=== PATIENT | female | born 1940 | race Caucasian/White ===

== ENCOUNTER 2017-01-07 05:01 | Emergency (ER) | payer MEDICARE ==
[~2017-01-07] VITALS: Ht 144.7 cm; Wt 61.2 kg
[~2017-01-07 05:01] MED LIST: ALLEGRA60 M2 PO; ASPIRIN325 M2 PO; CARDIZEM30 MG PO; CELEXA10 MG PO; CIPRO500 MG PO; CLARITIN10 M1 PO; FLAGYL500 MG PO; FLONASE ALLERG9.9 ML NS; HYDROCODONE BIT1 T11 PO; LISINOPRIL5 MG PO; METFORMIN500 MG PO; SUNMARK OMEPRAZ20 M1 PO; ZOFRAN ODT4 MG SL
[2017-01-07] MEDS ORDERED: KENALOG 0.1%80 GM T (05:09)
[2017-01-07] MEDS ORDERED: MONTELUKAST SOD10 MG PO (05:10)
[2017-01-07] MEDS ORDERED: PANTOPRAZOLE SO40 MG PO (05:11)
[2017-01-07] MEDS ORDERED: LISINOPRIL-HYDR1 TA1 PO (05:12)
[2017-01-07] MEDS ORDERED: IBUPROFEN600 MG PO (05:12)
[2017-01-07] MEDS ORDERED: ZOCOR20 MG PO (05:13)
[2017-01-07] MEDS ORDERED: CLOBETASOL PROP15 GM TP (05:13)
== END 2017-01-07 11:17 | disposition home or self-care (01) ==
LOC: ED 05:01
DX: S01.01XA Laceration without foreign body of scalp, initial encounter (principal); Z79.899 Other long term (current) drug therapy; W06.XXXA Fall from bed, initial encounter; Y93.89 Activity, other specified; Y92.89 Other specified places as the place of occurrence of the external cause; Y99.8 Other external cause status

== ENCOUNTER 2017-05-09 18:49 | Emergency (ER) | payer MEDICARE ==
[~2017-05-09] VITALS: Ht 147.3 cm; Wt 61.2 kg
[~2017-05-09 18:49] MED LIST changes: +CLOBETASOL PROP15 GM TP; +IBUPROFEN600 MG PO; +KENALOG 0.1%80 GM T; +LISINOPRIL-HYDR1 TA1 PO; +MONTELUKAST SOD10 MG PO; +PANTOPRAZOLE SO40 MG PO; +ZOCOR20 MG PO
[2017-05-09] MEDS ORDERED: AMARYL1 M1 PO (19:03)
== END 2017-05-09 22:29 | disposition home or self-care (01) ==
LOC: ED 18:49
DX: S90.32XA Contusion of left foot, initial encounter (principal); Z90.49 Acquired absence of other specified parts of digestive tract; Z90.710 Acquired absence of both cervix and uterus; Z98.890 Other specified postprocedural states; Z79.899 Other long term (current) drug therapy; W01.0XXA Fall on same level from slipping, tripping and stumbling without subsequent striking against object, initial encounter; Y93.89 Activity, other specified; Y92.098 Other place in other non-institutional residence as the place of occurrence of the external cause; Y99.9 Unspecified external cause status

== ENCOUNTER 2018-04-18 13:18 | Emergency (ER) | payer MEDICARE ==
[~2018-04-18] VITALS: Wt 59.9 kg
--- NOTE | ~2018-04-18 | EKG ---
[place], [place] ELECTROCARDIOGRAM REPORT NAME: LISETTE REID I UNIT #: [id number] ROOM: DOCTOR: EPIPHANY DRAFT REPORT BIRTHDATE: [birth year] [facility] Test Date: 2018-04-18 Test Time: 13:52:21 Pat Name: LISETTE REID Department: Room: Gender: F [employer]: : 1940 Requested By: SANDY REYES Order Number: [id number] Reading MD: Benton Pabon MD Measurements Intervals [place] Rate: 72 P: 39 ID: [id number] QRS: 2 QRSD: 60 T: -1 QT: 435 QTc: 477 Interpretive Statements Sinus rhythm LVH by voltage Electronically Signed On 04-18-2018 20:39:38 PDT by Benton Pabon MD CM:EKGRPT:ELECTROCARDIOGRAM REPORT [id number] SANDY REYES EPIPHANY DRAFT REPORT SANDY REYES
[~2018-04-18 13:18] MED LIST changes: +AMARYL1 M1 PO
[2018-04-18 14:17] LABS: HEMOGLOBIN 12.7 g/dl (12.0-16.0); MEAN CELL VOLUME 88.4 fl (81.0-99.0); MEAN CORPUSCULAR HGB 28.8 pg (27.0-31.0); MEAN CORPUSCULAR HGB CONC 32.6 g/dl (33.0-37.0); MEAN PLATELET VOLUME 10.6 fl (9.6-12.3); PLATELET COUNT AUTOMATED 345 10*3/uL (130-400); RED BLOOD COUNT 4.41 10*6/uL (4.10-5.10); RED CELL DISTRI WIDTH 14.4 % (0-14.5); WHITE BLOOD COUNT 14.7 10*3/uL (4.8-10.8)
[2018-04-18 14:35] LABS: ALBUMIN 3.8 gm/dl (3.1-4.5); ALKALINE PHOSPHATASE 75 U/L (45-117); BUN 31 mg/dl (7-24); CHLORIDE 107 mmol/L (98-107); CREATININE 1.35 mg/dL (0.55-1.02); PLATELET SUFFICIENCY NORMAL (NORMAL); POLYCHROMASIA SLIGHT; POTASSIUM 3.6 mmol/L (3.5-5.1); SGOT/AST 14 IU/L (3-35); SGPT/ALT 21 U/L (12-78); SODIUM 140 mmol/L (136-145); TOTAL CELLS COUNTED 100 #CELLS
[2018-04-18 14:44] LABS: TROPONIN I < 0.015 ng/ml (<0.045)
[2018-04-18] MEDS ORDERED: CYCLOBENZAPRINE10 MG PO (14:50)
[2018-04-18] MEDS ORDERED: MOTRIN 600 MG E4 TAB PO (14:50)
== END 2018-04-18 15:02 | disposition home or self-care (01) ==
LOC: ED 13:18
PROVIDERS: Nurse Practitioner Family
DX: M26.622 Arthralgia of left temporomandibular joint (principal); Z79.899 Other long term (current) drug therapy

== ENCOUNTER → 2018-11-20 | Outpatient (CLI) | payer MEDICARE ==
[~2018-11-20] MED LIST changes: +CYCLOBENZAPRINE10 MG PO; +MOTRIN 600 MG E4 TAB PO
== END | disposition home or self-care (01) ==
LOC: RAD 11:08
DX: M47.817 Spondylosis without myelopathy or radiculopathy, lumbosacral region (principal); M41.86 Other forms of scoliosis, lumbar region

== ENCOUNTER → 2019-10-10 | Outpatient (CLI) | payer MEDICARE | END | disposition home or self-care (01) | LOC: RESCLI 00:49 | DX: L30.9 Dermatitis, unspecified (principal); E11.9 Type 2 diabetes mellitus without complications; I10 Essential (primary) hypertension; E78.5 Hyperlipidemia, unspecified; K21.9 Gastro-esophageal reflux disease without esophagitis ==

== ENCOUNTER 2020-11-22 11:59 | Emergency (ER) | payer MEDICARE ==
[~2020-11-22] VITALS: Wt 60.8 kg
[2020-11-22 13:12] LABS: BASO % 0.1 % (0.0-1.0); EOS # 0.2 10*3/uL (0.0-0.4); EOS % 1.7 % (1.0-4.0); HEMATOCRIT 37.4 % (37.0-47.0); LYMPH # 1.2 10*3/uL (1.3-4.4); LYMPH % 8.8 % (27.0-41.0); MEAN CELL VOLUME 87.8 fl (81.0-99.0); MEAN CORPUSCULAR HGB 28.2 pg (27.0-31.0); MEAN CORPUSCULAR HGB CONC 32.1 g/dl (33.0-37.0); MONO # 1.4 10*3/uL (0.1-1.0); MONO % 9.8 % (3.0-9.0); NEUT % 78.8 % (47.0-73.0); PLATELET COUNT AUTOMATED 358 10*3/uL (130-400); RED BLOOD COUNT 4.26 10*6/uL (4.10-5.10); RED CELL DISTRI WIDTH 17.7 % (0-14.5)
[2020-11-22 13:28] LABS: ALBUMIN 3.7 gm/dl (3.1-4.5); CREATININE 1.24 mg/dL (0.55-1.02); POTASSIUM 3.5 mmol/L (3.5-5.1); TOTAL PROTEIN 7.9 gm/dL (6.4-8.2); URIC ACID 7.9 mg/dL (2.6-6.0)
[2020-11-22] MEDS ORDERED: PREDNISONE50 MG PO (15:23)
== END 2020-11-22 15:28 | disposition home or self-care (01) ==
LOC: ED 11:59
PROVIDERS: Emergency Medicine
DX: M10.9 Gout, unspecified (principal); I10 Essential (primary) hypertension; K21.9 Gastro-esophageal reflux disease without esophagitis; E78.5 Hyperlipidemia, unspecified; Z86.73 Personal history of transient ischemic attack (TIA), and cerebral infarction without residual deficits; Z79.899 Other long term (current) drug therapy; Z90.49 Acquired absence of other specified parts of digestive tract; Z98.890 Other specified postprocedural states; Z90.711 Acquired absence of uterus with remaining cervical stump

== ENCOUNTER → 2021-08-11 | Outpatient (CLI) | payer MEDICARE ==
[~2021-08-11] MED LIST changes: +PREDNISONE50 MG PO
== END | disposition home or self-care (01) ==
LOC: COVID19 15:34
PROVIDERS: ATTEND Internal Medicine
DX: Z11.52 Encounter for screening for COVID-19 (principal)

== ENCOUNTER 2021-08-27 08:43 | Emergency (ER) | payer MEDICARE ==
[~2021-08-27] VITALS: Ht 147.3 cm; Wt 58.1 kg
[2021-08-27 09:37] LABS: BASO % 0.1 % (0.0-1.0); HEMATOCRIT 42.7 % (37.0-47.0); LYMPH % 4.9 % (27.0-41.0); MEAN CELL VOLUME 88.4 fl (81.0-99.0); MEAN CORPUSCULAR HGB 29.2 pg (27.0-31.0); MEAN PLATELET VOLUME 10.3 fl (9.6-12.3); MONO # 1.3 10*3/uL (0.1-1.0); MONO % 6.2 % (3.0-9.0); NEUT # 18.5 10*3/uL (2.3-7.9); NEUT % 88.2 % (47.0-73.0); NUCLEATED RED BLOOD CELL 0.1 % (0.0-0.0); PLATELET COUNT AUTOMATED 364 10*3/uL (130-400); RED BLOOD COUNT 4.83 10*6/uL (4.10-5.10); RED CELL DISTRI WIDTH 18.5 % (0-14.5)
[2021-08-27 10:03] LABS: ALBUMIN 3.3 gm/dl (3.1-4.5); CREATININE 1.93 mg/dL (0.55-1.02); POTASSIUM 4.3 mmol/L (3.5-5.1)
[2021-08-27] MEDS ORDERED: AUGMENTIN 875875 MG PO (11:02)
== END 2021-08-27 11:30 | disposition home or self-care (01) ==
LOC: ED 08:43
PROVIDERS: Student in an Organized Health Care Education/Training Program
DX: K52.9 Noninfective gastroenteritis and colitis, unspecified (principal); E86.0 Dehydration; Z79.899 Other long term (current) drug therapy

== ENCOUNTER 2021-12-08 11:09 | Emergency (ER) | payer MEDICARE ==
[~2021-12-08] VITALS: Ht 147.3 cm; Wt 59.0 kg
[~2021-12-08 11:09] MED LIST changes: +AUGMENTIN 875875 MG PO
== END 2021-12-08 15:34 | disposition home or self-care (01) ==
LOC: ED 11:09
DX: R51.9 Headache, unspecified (principal); M54.2 Cervicalgia; Z79.899 Other long term (current) drug therapy; Z90.49 Acquired absence of other specified parts of digestive tract; Z90.710 Acquired absence of both cervix and uterus

== ENCOUNTER 2025-08-03 07:53 | Emergency (ER) | payer OTHER ==
[~2025-08-03] VITALS: Ht 149.8 cm; Wt 52.2 kg
[~2025-08-03 07:53] MED LIST changes: +ATENOLOL25 MG PO; +BREO ELLIPTA 21 EACH INH; +JARDIANCE10 MG PO; +LASIX20 MG PO; +METHOTREXATE2.5 MG PO; +NATURE'S BLEND F1 MG PO; +PREDNISONE10 MG PO; +TOPCARE ASPIRIN81 M1 PO; +VENT7GM INH; +ZYRTEC10 M2 PO
[2025-08-03] MEDS ORDERED: LIDOCAINE 1 EA PATCH T SCH (10:00)
[2025-08-03] MEDS ORDERED: LIDODERM1 EACH T (12:46)
== END 2025-08-03 13:11 | disposition home or self-care (01) ==
LOC: ED 07:53
DX: M62.838 Other muscle spasm (principal); I10 Essential (primary) hypertension; K21.9 Gastro-esophageal reflux disease without esophagitis; E78.5 Hyperlipidemia, unspecified; Z90.49 Acquired absence of other specified parts of digestive tract; Z90.710 Acquired absence of both cervix and uterus; Z86.73 Personal history of transient ischemic attack (TIA), and cerebral infarction without residual deficits